=== PATIENT | female | born 1965 | race Two or more races ===

== ENCOUNTER 2025-02-21 12:22 | Inpatient (IN) | payer OTHER ==
[~2025-02-21] VITALS: Ht 154.9 cm; Wt 64.9 kg
[2025-02-21] MEDS ORDERED: LACTOBACILLUS ACIDOPHILUS 1 CAP CAP PO STA (14:25)
[2025-02-21] MEDS ORDERED: ONDANSETRON HCL 2 MG/ML VIAL IV STA (14:26)
[2025-02-21] MEDS ORDERED: FAMOtidine 10 MG/ML (4ML VIAL) IV STA (14:26)
[2025-02-21] MEDS ORDERED: 0.9 % SODIUM CHLORIDE 500 ML IV STA (14:28)
[2025-02-21] MEDS ORDERED: HYOSCYAMINE SULFATE 0.125 MG TAB.SUBL SL ONE (14:30)
[2025-02-21] MEDS ORDERED: FAMOTIDINE/PF 20 MG/2 ML VIAL ONE (15:23)
[2025-02-21] MEDS ORDERED: HYOSCYAMINE SULFATE 0.125 MG TAB.SUBL ONE (15:23)
[2025-02-21] MEDS ORDERED: ONDANSETRON HCL 2 MG/ML VIAL ONE (15:23)
[2025-02-21] MEDS ORDERED: LACTOBACILLUS ACIDOPHILUS 1 CAP CAP PO ONE (15:23)
[2025-02-21 15:27] LABS: BASO % 0.5 % (0.1-1.2); EOS # 0.20 (0.04-0.54); EOS % 1.8 % (0.7-7.0); LYMPH # 1.61 (1.18-3.74); LYMPH % 14.3 % (19.3-53.1); MEAN PLATELET VOLUME 9.60 fl (9.4-12.4); MONO # 0.65 (0.24-0.82); MONO % 5.8 % (4.7-12.5); NEUT # 8.71 (1.56-6.13); NEUT % 77.3 % (34.0-71.1); RED CELL DISTRIBUTION WIDTH 12.4 % (11.6-14.4)
[2025-02-21 15:57] LABS: ALT/SGPT 28.0 U/L (12-78); AST/SGOT 16.0 U/L (15-37); BILIRUBIN TOTAL 0.71 mg/dL (0.3-1.2); BUN CREA RATIO 17.0 (7.0-25.0); CREATININE SERUM 0.63 mg/dL (0.55-1.02); GFR 97.4; GLOBULINA 3.4 G/DL (2.4-3.5); GLUCOSE FASTING 100.0 mg/dL (65-100); OSMOLALITY SERUM 281.0 MOSM/KG (275-295)
[2025-02-21 18:18] LABS: URINE APPEARANCE Clear; URINE BILIRRUBIN Negative (NEGATIVE); URINE BLOOD Moderate; URINE COLOR Yellow; URINE GLUCOSE Negative (NEGATIVE); URINE KETONE 15 (NEGATIVE); URINE LEUKOCYTE Small; URINE NITRATE Negative; URINE PROTEIN Negative (NEGATIVE); URINE UROBILINOGEN 0.2 E.U./dl
[2025-02-21 18:23] LABS: URINE BACTERIA 80.3 uL (0.0-1933); URINE EPITHELIAL CELLS 18.6 uL (0.0-38.8); URINE RBC 13.0 uL (0.0-20.8); URINE WBC 8.3 uL (0.0-23.2)
[2025-02-21 18:40] LABS: URINE CAST 0.29 uL (0.0-1.40)
[2025-02-21] MEDS ORDERED: METRONIDAZOLE/SODIUM CHLORIDE 500 MG/100 ML PIGGYBACK IV STA (19:06)
[2025-02-21] MEDS ORDERED: KETOROLAC TROMETHAMINE 15 MG VIAL IU STA (19:07)
[2025-02-21] MEDS ORDERED: CIPROFLOXACIN IN 5 % DEXTROSE 400 MG/200 ML PIGGYBAG IV STA (19:07)
[2025-02-21] MEDS ORDERED: MORPHINE SULFATE 2 MG/ML SYRINGE IV STA (20:27)
[2025-02-21] MEDS ORDERED: KETOROLAC TROMETHAMINE 30 MG VIAL ONE (21:20)
[2025-02-21] MEDS ORDERED: CIPROFLOXACIN IN 5 % DEXTROSE 400 MG/200 ML PIGGYBAG IV ONE (21:20)
[2025-02-21] MEDS ORDERED: METRONIDAZOLE/SODIUM CHLORIDE 500 MG/100 ML PIGGYBACK IV ONE (21:20)
[2025-02-21] MEDS ORDERED: MORPHINE SULFATE 4 MG/ML CARTRIDGE IV PRN (23:00)
[2025-02-21] MEDS ORDERED: ONDANSETRON HCL 4 MG in 0.9 % SODIUM CHLORIDE 50 ML IV PRN (23:00)
[2025-02-21] MEDS ORDERED: 0.9 % SODIUM CHLORIDE 1,000 ML IV SCH (23:00)
[2025-02-21] MEDS ORDERED: PIPERACILLIN/TAZOBACTAM SODIUM 3.375 GM VIAL IV ONE (23:52)
[2025-02-22] MEDS ORDERED: PIPERACILLIN/TAZOBACTAM SODIUM 3.375 GM in DEXTROSE 5 % IN WATER 100 ML IV SCH
[2025-02-22 01:26] LABS: INR 1.03
[2025-02-22 03:00] VITALS: BP 110/57; O2SAT 100
[2025-02-22 08:23] VITALS: BP 121/73
[2025-02-22] MEDS ORDERED: FAMOTIDINE/PF 20 MG in 0.9 % SODIUM CHLORIDE 8 ML IV PUSH SCH (09:00)
[2025-02-22] MEDS ORDERED: ENOXAPARIN SODIUM 40 MG/0.4 ML SYRINGE SUBCUTANEO SCH (09:00)
[2025-02-23 01:18] VITALS: BP 121/66; O2SAT 97
[2025-02-23 05:43] LABS: BASO % 0.7 % (0.1-1.2); EOS # 0.12 (0.04-0.54); EOS % 2.0 % (0.7-7.0); LYMPH # 1.67 (1.18-3.74); LYMPH % 28.5 % (19.3-53.1); MEAN PLATELET VOLUME 10.00 fl (9.4-12.4); MONO # 0.47 (0.24-0.82); MONO % 8.0 % (4.7-12.5); NEUT # 3.55 (1.56-6.13); NEUT % 60.6 % (34.0-71.1); RED CELL DISTRIBUTION WIDTH 11.6 % (11.6-14.4)
[2025-02-23 06:49] LABS: ALT/SGPT 20.0 U/L (12-78); AST/SGOT 14.0 U/L (15-37); BILIRUBIN TOTAL 0.48 mg/dL (0.3-1.2); BUN CREA RATIO 25.0 (7.0-25.0); CREATININE SERUM 0.65 mg/dL (0.55-1.02); GFR 93.95; GLOBULINA 2.6 G/DL (2.4-3.5); OSMOLALITY SERUM 283.0 MOSM/KG (275-295)
[2025-02-23 07:32] LABS: GLUCOSE FASTING 48.0 mg/dL (65-100)
[2025-02-23 08:52] VITALS: BP 113/73; O2SAT 97
[2025-02-23] MEDS ORDERED: DEXTROSE 5 % AND 0.9 % NACL 1,000 ML IV SCH (14:45)
[2025-02-23] MEDS ORDERED: DEXTROSE 50 % IN WATER 0.5 G/ML DISP.SYRIN IV PRN (14:45)
[2025-02-23] MEDS ORDERED: INSULIN LISPRO 1,000 UNIT/10 ML UNITS SUBCUTANEO PRN (14:45)
[2025-02-23 15:30] VITALS: BP 141/82; O2SAT 98
[2025-02-23] MEDS ORDERED: KETOROLAC TROMETHAMINE 30 MG VIAL IV PRN (17:00)
[2025-02-23] MEDS ORDERED: ORPHENADRINE CITRATE 30 MG/ML AMPUL IV SCH (21:00)
[2025-02-23] MEDS ORDERED: FAMOTIDINE/PF 20 MG in 0.9 % SODIUM CHLORIDE 8 ML IV PUSH SCH (21:00)
[2025-02-23 22:54] LABS: FECAL LEUKOCYTES POSITIVE (NEGATIVE)
[2025-02-24 01:14] VITALS: BP 165/82; O2SAT 97
[2025-02-24 09:23] VITALS: BP 146/70; O2SAT 99
[2025-02-24] MEDS ORDERED: CEFTRIAXONE SODIUM 2,000 MG VIAL IV SCH (17:00)
[2025-02-24 17:57] VITALS: BP 160/85; O2SAT 100
[2025-02-24] MEDS ORDERED: AMOX-CLAV 875-1 EAC1 PO (18:34)
[2025-02-24] MEDS ORDERED: METRONIDAZOLE500 MG PO (18:34)
[2025-02-24] MEDS ORDERED: INTESTINEX680 M1 PO (18:35)
[2025-02-24] MEDS ORDERED: ACETAMINOPHEN 500 MG GEL..CAP PO STA (18:58)
== END 2025-02-24 19:20 | disposition home or self-care (01) | DRG 392 ==
LOC: ER 12:23 → MEDI 22:53 → MEDJ 22:53 → MEDI 02-22 00:28 → MEDJ 02-22 17:51
PROVIDERS: General Practice; Internal Medicine Infectious Disease; ADMIT Internal Medicine; ATTEND Internal Medicine
PROC: BW21YZZ Computerized Tomography (CT Scan) of Abdomen and Pelvis using Other Contrast (ICD-10-PCS; principal; 2025-02-21)
DX: K57.92 Diverticulitis of intestine, part unspecified, without perforation or abscess without bleeding (principal); K52.9 Noninfective gastroenteritis and colitis, unspecified; E86.0 Dehydration